=== PATIENT | female | born 2000 | race Caucasian/White ===

== ENCOUNTER 2025-08-08 11:05 | Outpatient (CLI) | payer OTHER, SELFPAY | END 2025-08-08 11:06 | disposition home or self-care (01) | LOC: AMB 08-11 18:30 | PROVIDERS: Visit Provider Emergency Medicine | DX: F10.129 Alcohol abuse with intoxication, unspecified (principal); R41.82 Altered mental status, unspecified | CPT/HCPCS: A0425; A0427 ==

== ENCOUNTER 2025-08-08 11:30 | Inpatient (IN) | payer OTHER, SELFPAY ==
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
[2025-08-08] VITALS (34 sets, daily range): BP systolic 104–127; BP diastolic 63–102; PULSE 74–99; RESP 10–25; TEMP 37.2; O2SAT 95–100
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
[2025-08-08 11:51] LABS: Hematocrit* 35.5 % (33.0-51.0); Hemoglobin* 11.9 gm/dL (12.0-16.0); Immature Granulocytes Abs Auto 0.00 K/uL (0.00-0.30); Immature Granulocytes Pct Auto 0.0 %; Mean Corpuscular HGB Conc 34 gm/dL (32-36); Mean Corpuscular Hemoglobin 32 pg (26-34); Mean Corpuscular Volume 95 fL (80-100); RDW Coefficient of Variation % 12.9 % (11.5-15.5); Red Blood Count* 3.74 m/uL (4.00-5.20); White Blood Count* 3.71 K/uL (4.50-11.00)
[2025-08-08 11:55] LABS: Lymphocytes Absolute Auto 1.40 K/uL (0.90-2.90); Slide Review Reflex No
[2025-08-08 12:04] LABS: Chloride* 105 mmol/L (96-114); Potassium* 3.8 mmol/L (3.6-5.1); Sodium* 139 mmol/L (135-149)
[2025-08-08 12:07] LABS: Anion Gap 13 mEq/L (7-15); Blood Urea Nitrogen* 11 mg/dL (5-24); Calcium* 8.6 mg/dL (8.4-10.6); Carbon Dioxide* 21 mmol/L (20-32); Creatinine* 1.0 mg/dL (0.5-1.5); Estimated Glomerular Filt Rate 82 ml/min; Ethanol* 0.07 % (0.01-0.03); Glucose* 103 mg/dL (60-115)
[2025-08-08 12:08] LABS: Acetaminophen* < 10.0 ug/mL (10.0-30.0); Salicylate* < 1.0 mg/dL (1.0-10)
[2025-08-08 14:53] LABS: HCO3 VBG 22 mmol/L (21-28); PCO2 VBG 32 mmHG (40-50); PO2 VBG 100.0 mmHG (25-47); pH VBG 7.448 (7.32-7.43)
[2025-08-08 16:19] LABS: HCO3 VBG 24 mmol/L (21-28); PCO2 VBG 33 mmHG (40-50); PO2 VBG 48.3 mmHG (25-47); pH VBG 7.456 (7.32-7.43)
[2025-08-08 16:38] LABS: Chloride* 105 mmol/L (96-114); Potassium* 4.1 mmol/L (3.6-5.1); Sodium* 138 mmol/L (135-149)
[2025-08-08 16:41] LABS: Anion Gap 12 mEq/L (7-15); Blood Urea Nitrogen* 9 mg/dL (5-24); Calcium* 8.9 mg/dL (8.4-10.6); Carbon Dioxide* 21 mmol/L (20-32); Creatinine* 0.7 mg/dL (0.5-1.5); Estimated Glomerular Filt Rate 125 ml/min; Glucose* 103 mg/dL (60-115)
[2025-08-08 16:45] LABS: Acetaminophen* < 10.0 ug/mL (10.0-30.0); Salicylate* < 1.0 mg/dL (1.0-10)
--- NOTE | 2025-08-08 16:54 | PC.NURSE ---
per poison control patient is medically cleared at this time
[2025-08-08 18:45] LABS: Ur HCG Qualitative* Negative (Negative)
[2025-08-08 18:50] LABS: Cannabinoid Screen Urine Negative (Negative); Methamphetamines Screen Urine Negative (Negative); Tricyclic Antidepressant Urine Negative (Negative)
[2025-08-09] VITALS (13 sets, daily range): BP systolic 116–122; BP diastolic 70–76; PULSE 16–120; RESP 14–30; TEMP 36.5; O2SAT 95–122
[2025-08-09] MEDS: diazePAM 5 MG/ML inj IV ×2 (18:17→20:20)
[2025-08-09] MEDS: OLANZapine 5 MG/ML inj 10 MG IVP (20:08)
[2025-08-09] MEDS: PHENobarbitaL 130 MG in 0.9 % SODIUM CHLORIDE 100 ml 100 ML 204 MG IVPB (22:14)
[2025-08-10] VITALS (11 sets, daily range): BP systolic 104–157; BP diastolic 65–108; PULSE 75–76; RESP 16–26; TEMP 36.7–36.9; O2SAT 95–100; BMI 23.1
[2025-08-10] MEDS: MELATONIN 3 MG TABLET 4.5 MG PO (00:26)
[2025-08-10] MEDS: diazePAM 5 MG/ML inj IV (03:00)
[2025-08-10 04:23] LABS: Albumin* 4.2 g/dL (3.3-5.0)
[2025-08-10 04:26] LABS: Alanine Aminotransferase* 24 U/L (4-35); Aspartate Amino Transferase* 41 U/L (12-35); Total Protein* 6.9 g/dL (6.0-8.3)
[2025-08-10 04:27] LABS: Alkaline Phosphatase* 69 U/L (40-150); Bilirubin Direct* 0.4 mg/dL (0.0-0.5); Bilirubin Total* 0.9 mg/dL (0.1-1.5)
--- NOTE | 2025-08-10 05:08 | W.PM.TELEH&P ---
Telehealth- H&P: HPI History of Present Illness Date Seen: 08/10/25 Chief complaint: unresponsive Narrative: Litzy Campoverde is seen as an Interactive Telehealth visit. The patient is a 25-year-old female with a past medical history notable for alcohol use disorder, tobacco use disorder, depression, PTSD, borderline personality disorder who presented after an intentional overdose of hydroxyzine, ibuprofen and Aleve. She was brought in via EMS after her parents had called EMS due to the patient being more lethargic. She was minimally responsive on arrival. The patient apparently took a bottle of hydroxyzine, she had 45 pills when filled on 06/17/2025. She also reportedly took ibuprofen and Aleve. The patient reports that over the past 4 months she has been drinking heavily to the point of blacking out.. The patient reports she was trying to overdose as a suicide attempt. She continues to have suicidal ideation. During her hospital course she had episodes of agitation concerning for alcohol withdrawal. The ER provider requested admission for alcohol withdrawal. She was put on a hold with the plan to treat alcohol withdrawal and then transfer her to per 6 rounds.. In the ER patient's labs were overall reassuring. She has no significant medical history. She does report that she had an episode of vomiting after the overdose. Denies any current symptoms except for some tremors. Review of Systems Status of ROS: Reports: 10 or more systems reviewed and unremarkable except as noted in History and below Meds Home Medications and Allergies Home Medications ?Medication ?Instructions ?Recorded ?Confirmed ?Type ondansetron 4 mg disintegrating 4 mg PO Q8H PRN nausea and 09/22/24 09/22/24 Rx tablet vomiting #20 tabs sertraline 50 mg tablet 50 mg PO DAILY 09/22/24 08/08/25 History hydroxyzine HCl 50 mg tablet mg PO 08/08/25 History Allergies Allergy/AdvReac Type Severity Reaction Status Date / Time No Known Drug Allergies Allergy Verified 08/08/25 11:45 Exam Narrative Exam Narrative: Physical Exam GENERAL: ?vital signs reviewed, well developed and nourished, in no distress HEENT: pupils are equal round and reactive to light, extraocular movements are grossly within normal limits and oral mucosa is moist. NECK: Supple without lymphadenopathy or thyromegaly according to nursing staff examination observation HEART: Regular rate and rhythm without any rubs, murmurs, or gallops. LUNGS: Clear to auscultation bilaterally with good air movement throughout ABDOMEN: Observation from nurse assisted exam, abdomen appears soft, nontender, and nondistended with Positive bowel sounds noted. EXTREMITIES: Strength and sensation is observed to be grossly within normal limits in the upper and lower extremities.? No focal strength deficit is observed. Mild tremor SKIN:? Observed warm and dry with color normal PSYCH:Somewhat flat affect but otherwise appropriate Const Vital Signs, click to edit/add: Vital Signs - 24 hr 08/09/25 06:00 08/09/25 07:37 08/09/25 11:00 Pulse Rate 65 84 Pulse Rate [Left Pulse Oximeter] 64 Pulse Rate [Pulse Oximeter] Respiratory Rate 17 16 14 Blood Pressure [Right Upper Arm] 116/70 Pulse Oximetry 99 98 99 Oxygen Delivery Method Room Air 08/09/25 16:22 08/09/25 16:50 08/09/25 17:00 Pulse Rate 80 82 Pulse Rate [Left Pulse Oximeter] 98 Pulse Rate [Pulse Oximeter] 16 L Respiratory Rate 18 Blood Pressure [Right Upper Arm] 122/74 Pulse Oximetry 122 H 99 100 Oxygen Delivery Method Room Air 08/09/25 17:15 08/09/25 17:30 08/09/25 20:30 Pulse Rate 72 73 Pulse Rate [Left Pulse Oximeter] Pulse Rate [Pulse Oximeter] Respiratory Rate Blood Pressure [Right Upper Arm] Pulse Oximetry 100 95 96 Oxygen Delivery Method 08/09/25 20:30 08/09/25 20:30 08/09/25 20:30 Pulse Rate Pulse Rate [Left Pulse Oximeter] 120 H Pulse Rate [Pulse Oximeter] Respiratory Rate 30 H 30 H Blood Pressure [Right Upper Arm] Pulse Oximetry 96 96 Oxygen Delivery Method Room Air 08/09/25 20:30 08/09/25 22:07 08/10/25 00:13 Pulse Rate Pulse Rate [Left Pulse Oximeter] 116 H Pulse Rate [Pulse Oximeter] Respiratory Rate 20 18 Blood Pressure [Right Upper Arm] 121/76 Pulse Oximetry 99 95 Oxygen Delivery Method Room Air 08/10/25 02:00 Pulse Rate Pulse Rate [Left Pulse Oximeter] Pulse Rate [Pulse Oximeter] 76 Respiratory Rate 16 Blood Pressure [Right Upper Arm] 104/65 Pulse Oximetry 96 Oxygen Delivery Method Room Air Assessment and Plan Assessment and plan (1) Alcohol dependence with withdrawal: Status: Acute (2) Acute drug overdose: Status: Acute (3) Suicidal ideation: Status: Acute (4) Tobacco use disorder: Status: Acute Plan Alcohol use disorder with alcohol withdrawal Patient responded well to phenobarbital in the ER she received 130 mg Will load with 260 mg of phenobarbital Typical load 5 mg/kg to 10 mg/kg but given that she has had some doses of diazepam I will be a bit more conservative with my loading dose Phenobarbital as needed for elevated CIWA Oral thiamine Folic acid Check labs this morning including CMP, Mag, CBC Seizure precautions Suicidal ideation On 72 hour hold placed in ER prior to transfer to inpatient Transfer to psychiatry held and she was deemed not medically stable Suicide precautions Intentional overdose Initially had prolonged QT, repeat ECG personally reviewed: Sinus bradycardia with normal QTc Tobacco use disorder Nicotine replacement Prior to admission home medications that were felt to be needed immediately have been ordered. The remainder of the home medications will await pharmacy reconciliation and will be ordered by the attending provider in the a.m. Telehealth Visit: Today's History and Physical is provided via interactive telehealth by Dr. Tera Lu MD. Patient is located at [facility]. Provider is located at [employer]. Nursing staff assisted with the patient's exam. The visit being done today meets criteria for a telehealth visit and the patient or patients parent/guardian is aware the visit is a telehealth visit. Start Time: 453 End Time: 500 Medical Complexity: High ~~~~~~~~~~~~~~~~ Dr. Tera Lu ~~~~~~~~~~~~~~~~ Disclaimer: This note may contain dictation using voice recognition software. As a result, there may be errors that have gone undetected. Please consider this when interpreting information found in this note. Telehealth: Statement Statement Telehealth Visit: Today's History and Physical is provided via interactive telehealth by Tera Lu MD.? Patient is located at [facility].? Provider is located at [facility].? Nursing staff assisted with the patient's exam. The visit being done today meets criteria for a telehealth visit and the patient or patient?s parent/guardian is aware the visit is a telehealth visit. Camera Start Time: 04:53 Camera End Time: 05:00
[2025-08-10] MEDS: PHENobarbitaL 260 MG in 0.9 % SODIUM CHLORIDE 100 ml 100 ML 208 MG IVPB (05:30)
--- NOTE | 2025-08-10 07:04 | PC.NURSE ---
Pt is alert and oriented to self only. Afebrile. Pt denies pain, chest pain, SOB, and N/V. Pt has been in and out of bed. Pacing room, pulling and bed blankets back and forth on bed, opening and closing drawers in room. Pt CIWA scores have been 11 to 16, managing with PRN medication per protocol.
[2025-08-10] MEDS: NICOTINE 2 MG GUM BUCCAL (07:57)
[2025-08-10 08:52] LABS: HCO3 VBG 26 mmol/L (21-28); Ionized Calcium* 1.19 mmol/L (1.11-1.30); Lactate* 0.6 mmol/L (0.5-1.9); PCO2 VBG 43 mmHG (40-50); PO2 VBG < 30.1 mmHG (25-47); pH VBG 7.383 (7.32-7.43)
[2025-08-10] MEDS: FOLIC ACID 1 MG TABLET PO (08:57)
[2025-08-10] MEDS: MULTIVITAMIN/MINERALS 1 TABLET 1 TAB PO (08:57)
[2025-08-10] MEDS: THIAMINE 100 MG TABLET PO (08:57)
[2025-08-10 08:59] LABS: Hematocrit* 35.4 % (33.0-51.0); Hemoglobin* 11.6 gm/dL (12.0-16.0); Immature Granulocytes Abs Auto 0.00 K/uL (0.00-0.30); Immature Granulocytes Pct Auto 0.0 %; Mean Corpuscular HGB Conc 33 gm/dL (32-36); Mean Corpuscular Hemoglobin 32 pg (26-34); Mean Corpuscular Volume 97 fL (80-100); RDW Coefficient of Variation % 12.4 % (11.5-15.5); Red Blood Count* 3.67 m/uL (4.00-5.20); White Blood Count* 4.20 K/uL (4.50-11.00)
[2025-08-10 09:03] LABS: Lymphocytes Absolute Auto 1.80 K/uL (0.90-2.90); Slide Review Reflex No
[2025-08-10 09:08] LABS: Albumin* 4.4 g/dL (3.3-5.0); Chloride* 99 mmol/L (96-114); Sodium* 135 mmol/L (135-149)
[2025-08-10 09:09] LABS: Potassium* 3.4 mmol/L (3.6-5.1)
[2025-08-10 09:11] LABS: Blood Urea Nitrogen* 16 mg/dL (5-24); Creatinine* 0.7 mg/dL (0.5-1.5); Est. Creatinine Clearance* 122.59; Estimated Glomerular Filt Rate 125 ml/min
[2025-08-10 09:12] LABS: Alanine Aminotransferase* 24 U/L (4-35); Alkaline Phosphatase* 63 U/L (40-150); Anion Gap 13 mEq/L (7-15); Aspartate Amino Transferase* 33 U/L (12-35); Bilirubin Direct* 0.4 mg/dL (0.0-0.5); Bilirubin Total* 1.3 mg/dL (0.1-1.5); Calcium* 9.2 mg/dL (8.4-10.6); Carbon Dioxide* 23 mmol/L (20-32); Glucose* 95 mg/dL (60-115); Total Protein* 7.3 g/dL (6.0-8.3)
[2025-08-10 09:14] LABS: INR 0.97 (0.91-1.10); Prothrombin Time 13.7 Seconds
[2025-08-10] MEDS: OLANZapine 5 MG/ML inj 10 MG IM (10:45)
--- NOTE | 2025-08-10 11:16 | PM.DST ---
Transfer Discharge Sum: Prov Provider Date Seen: 08/10/25 Date of admission: 08/10/25 09:16 Primary care physician: Not a Local Provider Attending physician on discharge: Krystina Diaz Anticipated date of transfer: 08/10/25 DS: Diagnosis Discharge Diagnosis (1) Alcohol withdrawal delirium, acute, hyperactive: Status: Acute Problem details: rec'd - IV phenobarbital, Valium p.o. Ativan Haldol, olanzapine, ketamine. hyperactive delirium Ultimately she was intubated, sedated with a propofol drip am of 08/10/25 - transferred to [facility] - to medical ICU (2) Acute drug overdose: Status: Acute Problem details: hydroxyzine, ibuprofen, aleve on 08/08, tox screen negative daily vodka drinker; last drink 08/07-08/08 early (3) Alcohol use disorder: Status: Acute (4) Tobacco use disorder: Status: Acute (5) Borderline personality disorder: Status: Acute Transfer Discharge Sum: Med Medications Active and Home Medications: Home Medications sertraline 50 mg tablet 50 mg PO DAILY 09/22/24 [History Confirmed 08/08/25] hydroxyzine HCl 50 mg tablet mg PO 08/10/25 [History] Active Medications Flumazenil (Flumazenil 0.1 Mg/Ml Inj) 0.2 mg IVP Q1M PRN PRN Reason: Respiratory Depression Folic Acid (Folic Acid 1 Mg Tablet) 1 mg PO DAILY [facility] Last Admin: 08/10/25 08:57 Dose: 1 mg Lorazepam (Lorazepam 2 Mg/Ml Inj) 2 mg IV ONCE PRN PRN Reason: Alcohol Withdrawal Last Admin: 08/09/25 16:28 Dose: 2 mg Lorazepam (Lorazepam 1 Mg Tablet) 1 - 4 mg PO Q1H PRN; Protocol PRN Reason: CIWA protocol Last Admin: 08/10/25 10:13 Dose: 2 mg Melatonin (Melatonin 3 Mg Tablet) 6 mg PO HS PRN Multivitamins/Minerals (Multivitamin/Minerals 1 Tablet) 1 tab PO DAILY [facility] Last Admin: 08/10/25 08:57 Dose: 1 tab Nicotine (Nicotine 14 Mg Patch) 1 patch TRANSDERMA Q24H [facility] Nicotine Polacrilex (Nicotine 2 Mg Gum) 2 mg BUCCAL Q1H PRN Last Admin: 08/10/25 07:57 Dose: 2 mg Ondansetron HCl (Ondansetron 2 Mg/Ml Inj) 4 mg IVP Q4H PRN PRN Reason: Nausea Polyethylene Glycol (Polyethylene Glycol 3350 17 Gm Pack) 17 gm PO DAILY PRN Sodium Chloride (Sodium Chloride 0.9 % (Flush) 10 Ml Syringe) 5 ml IVF .FLUSH PRN Sodium Chloride (Sodium Chloride 0.9 % (Flush) 10 Ml Syringe) 5 ml IVF BID EULA Last Admin: 08/10/25 09:31 Dose: Not Given Thiamine HCl (Thiamine 100 Mg Tablet) 100 mg PO DAILY EULA Stop: 08/12/25 09:01 Last Admin: 08/10/25 08:57 Dose: 100 mg Transfer Discharge Sum: Hosp Hospital Course Hospital course: HOSPITALIST TRANSFER SUMMARY ATTENDING PHYSICIAN: Krystina Diaz MD REASON FOR TRANSFER Acute hyperactive delirium secondary to alcohol withdrawal and polypharmacy OD BRIEF HOSPITAL COURSE: On the morning of 08/07/25 Litzy, who lives with her father currently, was found to be sedated and unarousable. She was brought to our ER and by the patient's report she had taken numerous hydroxyzine, ibuprofen and Aleve. She reports vomiting just before EMS arrived. Her urine tox screen was negative. She was hyperactive throughout her 48 hour ER stay requiring security x3. She is also a daily vodka drinker and entered withdrawal late on the afternoon of 08/09/2025. Upon arrival to the floor she was delirious and agitated. We attempted to use IV phenobarbital, oral Ativan, IV Valium to control her symptoms. Ultimately she became severely agitated and was swinging, biting, spitting at staff. Despite IM Haldol and olanzapine, she needed further sedation. At that time I called for a ICU bed at [place]. Dr. Salazar was accepting. Our anesthesia team sedated, intubated Litzy at approximately 11:00 a.m. on 08/10/2025. She was transferred sedated and intubated on the morning of 08/10. SERVICES NOT AVAILABLE HERE THAT THIS PATIENT NEEDS: ICU Acute medical stabilization for acute hyperactive delirium secondary to alcohol withdrawal ACCEPTING PHYSICIAN/SERVICE/LOCATION: Dr. Ebenezer Salazar, [facility] ICU MEDICATIONS AT TIME OF TRANSFER: Propofol, fentanyl DRIPS/LINES: Peripheral IV, ETT VITAL SIGN, MEDICATION, LAB/MICRO, IMAGING SUMMARY (full details available in account tabs or by records request) See nurse notes REVIEW OF SYSTEMS Unchanged. PHYSICAL EXAM: CONSTITUTIONAL: Sedated, airway controlled VITAL SIGNS: see record. DISPOSITION: ICU ABNW Time spent on discharge >30 minutes. This includes speaking with accepting physician; family/patient and coordinating meds/drips for transfer Critical Care Time The patient required my highest level preparedness to intervene emergently and I personally spent this critical care time directly and personally managing the patient. This critical care time included: Obtaining a history; Examining the patient; Pulse oximetry; Ordering and reviewing of studies; Arranging urgent treatment with development of a management plan; Evaluation of patients response to treatment; Frequent reassessment discussions with other providers. This critical care time was performed to assess and manage the high probability of imminent life-threatening deterioration that could result in multiorgan failure. It was exclusive of separate billable procedures and treating other patients and teaching time. Time Spent with Patient Time attestation: Total time spent providing and/or coordinating transfer services: Total time spent: Greater than 30 minutes Exam Const: Vital Signs, click to edit/add: Vital Signs - 24 hr 08/09/25 16:22 08/09/25 16:50 08/09/25 17:00 Temperature Pulse Rate 80 82 Pulse Rate [Left P ulse Oximeter] 98 Pulse Rate [Pulse Oximeter] 16 L Respiratory Rate 18 Blood Pressure [Le ft Arm] Blood Pressure [Ri ght Upper Arm] 122/74 Pulse Oximetry 122 H 99 100 Oxygen Delivery Me thod Room Air 08/09/25 17:15 08/09/25 17:30 08/09/25 20:30 Temperature Pulse Rate 72 73 Pulse Rate [Left P ulse Oximeter] Pulse Rate [Pulse Oximeter] Respiratory Rate Blood Pressure [Le ft Arm] Blood Pressure [Ri ght Upper Arm] Pulse Oximetry 100 95 96 Oxygen Delivery Me thod 08/09/25 20:30 08/09/25 20:30 08/09/25 20:30 Temperature Pulse Rate Pulse Rate [Left P ulse Oximeter] 120 H Pulse Rate [Pulse Oximeter] Respiratory Rate 30 H 30 H Blood Pressure [Le ft Arm] Blood Pressure [Ri ght Upper Arm] Pulse Oximetry 96 96 Oxygen Delivery Me thod Room Air 08/09/25 20:30 08/09/25 22:07 08/10/25 00:13 Temperature Pulse Rate Pulse Rate [Left P ulse Oximeter] 116 H Pulse Rate [Pulse Oximeter] Respiratory Rate 20 18 Blood Pressure [Le ft Arm] Blood Pressure [Ri ght Upper Arm] 121/76 Pulse Oximetry 99 95 Oxygen Delivery Me thod Room Air 08/10/25 02:00 08/10/25 05:05 08/10/25 08:00 Temperature 98.1 F 98.5 F Pulse Rate Pulse Rate [Left P ulse Oximeter] Pulse Rate [Pulse Oximeter] 76 75 75 Respiratory Rate 16 20 Blood Pressure [Le ft Arm] 124/94 H 135/70 Blood Pressure [Ri ght Upper Arm] 104/65 Pulse Oximetry 96 100 97 Oxygen Delivery Me thod Room Air Room Air Room Air 08/10/25 08:02 Temperature Pulse Rate Pulse Rate [Left P ulse Oximeter] Pulse Rate [Pulse Oximeter] Respiratory Rate Blood Pressure [Le ft Arm] Blood Pressure [Ri ght Upper Arm] Pulse Oximetry 97 Oxygen Delivery Me thod Discharge Plan Discharge Disposition: [facility] Date of Admission: 08/10/25 09:16 Attending Provider on Discharge: Krystina Diaz Primary Care Provider: Provider,Not a Local Condition: Stable Discharge Orders: Transfer of Care to Other Hospital (ORDER); Ordered 08/10/25 Ordered By: Krystina Diaz Oxygen: Yes Oxygen Delivery Method: Intubated Urinary Catheter: No
--- NOTE | 2025-08-10 11:26 | CRLHL7_ITS ---
For Patients: As a result of the Century Cures Act, medical imaging exams and procedure reports are released immediately into your electronic medical record. You may view this report before your referring provider. If you have questions, please contact your health care provider. INDICATION: verify et placement TECHNIQUE: Chest 1 view COMPARISON: None FINDINGS: Cardiovascular and mediastinum: Heart size and vasculature are normal in caliber and appearance. Lungs and pleural spaces: Lungs are clear. No sign of infiltrate or mass. No sign of pleural effusion. No pneumothorax. Bones and soft tissues: Endotracheal tube is present within the distal trachea 2.1 cm above the georges. IMPRESSION: Endotracheal tube 2.1 cm from the georges. Dictated by Ebenezer Arce MD @ 08/10/2025 11:58:04 AM (Electronically Signed)
--- NOTE | 2025-08-10 14:24 | PC.NURSE ---
Nursing Note - At start of shift, pt alert, oriented to self/time/place, and cooperative. Pt noted to be periodically confused as she was?looking around her room for her phone which was not present. Pt also noted to experience auditory hallucinations and reported that she could hear her mom and sister arguing outside of her room and stated that she could see Alicia right there pointing towards the nursing station and was observed to be pacing in her room. RN offered oral medication from NOV per CIWA score protocol, pt refused. RN attempted to reapproach and pt stated I feel like I'm good and refused. Pt remained cooperative. As shift progressed, pt became more and more difficult to redirect and began exiting her room against staff direction. Pt verbally accused staff of stealing her personal belongings and became more agitated. RN and other staff attempted to de-escalate situation. Pt continued to leave her room and verbally accuse staff. MD made aware, allowed pt to have her phone and some personal clothing. Pt expressed frustration r/t not being able to have all of her belongings as she wanted to fucking leave. RN explained to pt that she was not able to leave due to a 72-hour hold being in place. RN offered oral medication per NOV again, pt accepted. Pt behavior continued to escalate. Pt reported that she wanted to ?call the police? and once again left her room. While out of her room she attempted to enter other pt rooms and leave CCU hallway while being verbally abusive towards staff. Pt was unable to be redirected. A Dr. JORGENSEN was called and pt was placed into restraint chair at approximately 1030. IM Medication provided per MD order, pt continued to verbally abuse staff and began spitting at staff when approached. Pt behavior did not improve, IM medication given per MD order in NOV. Pt repeatedly screamed, yelled ?help me!? and ?there?s a girl in here strapped to a chair!?. Medical staff attempted to approach pt and provide emotional support and verbal direction to which to pt yelled ?get the fuck away from me? and ?shut the fuck up?. Pt noted to verbally communicate with people she observed to be in the room, but medical staff did not see present. Pt behavior and verbal abuse towards staff continued, medication given per MD order in NOV. Pt transferred from restraint chair to bed at approximately 1125. RN provided nurse to nurse report to Jessica at [facility] at approximately 1120. Pt transferred to [facility] Medical ICU via EMS at approximately 1155. ?
== END 2025-08-10 11:55 | disposition short-term general hospital (02) | DRG 897 ==
LOC: ED 08-10 02:25 → MEDSURG 08-10 04:36
PROVIDERS: Family Medicine; Student in an Organized Health Care Education/Training Program; Admitting Provider Internal Medicine; Emergency Provider Family Medicine; Visit Provider Internal Medicine
DX: F10.231 Alcohol dependence with withdrawal delirium (principal); T43.592A Poisoning by other antipsychotics and neuroleptics, intentional self-harm, initial encounter; T39.312A Poisoning by propionic acid derivatives, intentional self-harm, initial encounter; T14.91XA Suicide attempt, initial encounter; F60.3 Borderline personality disorder; Y90.3 Blood alcohol level of 60-79 mg/100 ml; F32.A Depression, unspecified; F43.10 Post-traumatic stress disorder, unspecified; F41.9 Anxiety disorder, unspecified
CPT/HCPCS: 36415; 51701; 71045; 80048; 80053; 80069; 80076; 80143; 80179; 80306; 81025; 82077; 82330; 82803; 83605; 83735; 84443; 84484; 85025; 85610; 86140; 93005; 94761; 99285; 99291; Q3014; A9153; A9270; G0378; J1630; J2060; J2560; J3360; S4990

== ENCOUNTER 2025-08-10 11:45 | Outpatient (CLI) | payer OTHER, SELFPAY | END 2025-08-10 11:46 | disposition home or self-care (01) | LOC: AMB 08-14 11:45 | PROVIDERS: Visit Provider Family Medicine | DX: F10.931 Alcohol use, unspecified with withdrawal delirium (principal) | CPT/HCPCS: A0425; A0434 ==